=== PATIENT | female | born 1980 | race Caucasian/White ===

== ENCOUNTER 2025-06-24 12:15 | Emergency (ER) | payer MEDICAID, SELFPAY ==
[2025-06-24 12:16] VITALS: BMI 22.7
[2025-06-24 12:33] VITALS: BP 111/62; PULSE 100; RESP 18; TEMP 36.6; O2SAT 97
--- NOTE | 2025-06-24 12:39 | EKG_ITS ---
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
--- NOTE | 2025-06-24 12:39 | XR_ITS ---
Examination: Abdomen AP single view Technique: AP portable supine abdomen, single view Exam date and time: June 24, 2025, 12:55 p.m. INDICATIONS: Dark stools abdominal pain 2 weeks FINDINGS: Moderate stool throughout the colon No obstruction Surgical clips upper right abdomen No free air IMPRESSION: Nonobstructive bowel gas pattern
--- NOTE | 2025-06-24 12:40 | PD.EDRME ---
Rapid Medical Screening Exam E Arrival date/time: 06/24/25 12:15 44-year-old female with no known medical history presents to the emergency room with a chief complaint of feeling like she is going to pass out. Patient states throughout the last 4 days she has had multiple near syncopal episodes. I have greeted and performed a focused initial assessment of this patient. A comprehensive ED assessment and evaluation of the patient, analysis of all test results, and completion of the medical decision making process will be conducted by additional ED providers. Chief Complaint: General Adult/Misc Complain Time Seen by Provider: 06/24/25 12:22 Vital signs: Vital Signs Temperature 97.9 F 06/24/25 12:33 Pulse Rate 100 06/24/25 12:33 Respiratory Rate 18 06/24/25 12:33 Blood Pressure 111/62 06/24/25 12:33 Pulse Oximetry (%) 97 06/24/25 12:33 Oxygen Delivery Method Room Air 06/24/25 12:33 Vital signs reviewed by provider: Yes Exam: Strong and regular rhythm S1 and S2 noted Clear bilateral lung sounds Clinical Impression: Syncope/orthostatic hypotension/anemia
[2025-06-24 12:59] LABS: Basophils # (Auto) 0.1 Thou/mm3 (0.0-0.2); Basophils % (Auto) 1 % (0-2.5); Eosinophils # (Auto) 0.1 Thou/mm3 (0.0-0.5); Eosinophils % (Auto) 2 % (0-10); Hematocrit 42.1 % (36.0-46.0); Hemoglobin 14.0 g/dL (12.0-16.0); Immature Granulocytes Auto 0.01 Thou/mm3 (0.00-0.00); Lymphocytes # (Auto) 3.6 Thou/mm3 (1.0-4.8); Lymphocytes % (Auto) 50 % (10-50); Mean Corpuscular HGB Conc 33.3 g/dl (31.0-37.0); Mean Corpuscular Hemoglobin 30.0 pg (25.0-35.0); Mean Corpuscular Volume 90 fL (80-100); Monocytes # (Auto) 0.7 Thou/mm3 (0.0-0.8); Monocytes % (Auto) 9 % (0-12); Neutrophils # (Auto) 2.8 Thou/mm3 (1.8-7.7); Neutrophils % (Auto) 38 % (37-80); Nucleated Red Blood Cell # 0.00 Thou/mm3 (0.00-0.00); Nucleated Red Blood Cell % 0 /100 WBC (0); Platelet Count 270 Thou/mm3 (140-440); RDW Standard Deviation 46.8 fL (36.4-46.3); Red Blood Count 4.67 Miln/mm3 (4.00-5.20); White Blood Count 7.2 Thou/mm3 (3.6-11.0)
[2025-06-24 13:14] LABS: INR 1.0 (0.9-1.3); Partial Thromboplastin Time 25.9 Seconds (22.0-36.0); Prothrombin Time 10.7 Seconds (9.0-12.2)
[2025-06-24 13:17] LABS: B-Type Natriuretic Peptide < 20 pg/mL (0-100)
[2025-06-24 13:31] LABS: Alanine Aminotransferase 8 U/L (10-49); Albumin, Serum 4.3 gm/dL (3.5-5.0); Albumin/Globulin Ratio 2.0 (1.2-2.2); Alkaline Phosphatase 89 U/L (46-116); Anion Gap 2 (7-16); Aspartate Amino Transferase 15 U/L (0-34); BUN/Creatinine Ratio 9 Ratio (12-20); Bilirubin,Total 0.3 mg/dL (0.3-1.2); Blood Urea Nitrogen 8 mg/dL (9-23); Calcium 9.8 mg/dL (8.3-10.6); Calcium (Corrected) 9.8 mg/dL (8.5-10.1); Carbon Dioxide 26.7 mMol/L (20.0-31.0); Chloride 107 mMol/L (98-107); Creatinine (Component) 0.9 mg/dL (0.6-1.3); Estimated Creatinine Clearance 76.8 mL/min (>60); Free T4 (Free Thyroxine) 1.15 ng/dL (0.89-1.76); Globulin 2.2 gm/dL (2.3-3.5); Glucose 90 mg/dL (74-106); Magnesium 1.8 mg/dL (1.6-2.6); Osmolality,Calculated 270 (275-295); Potassium 4.2 mMol/L (3.4-5.1); Sodium 136 mMol/L (136-145); Thyroid Stimulating Hormone 1.19 uIU/mL (0.55-4.78); Total Protein 6.5 gm/dL (5.7-8.2); Troponin I < 0.002 ng/mL (0.0-0.045); eGFR > 60 See Note
[2025-06-24 15:44] VITALS: BP 110/75; PULSE 100; RESP 18; TEMP 36.7; O2SAT 99
[2025-06-24 15:54] LABS: Collection Type, Urine Clean Catch
[2025-06-24 16:27] LABS: Bilirubin,Urine Negative (Negative); Blood,Urine Negative (Negative); Clarity,Urine Clear (Clear/Hazy); Color,Urine Lt-Yellow (Lt Yel-Yel); Culture Indicated,Urine Not Indicated; Glucose, Urine Negative (Negative); Ketones,Urine Negative (Negative); Leukocyte Esterase,Urine Negative (Negative); Nitrite,Urine Negative (Negative); PH,Urine 6.0 (5.0-7.0); Protein,Urine Negative (Neg - Trace); RBC,Urine 1 /hpf (0-3); Specific Gravity,Urine 1.009 (1.001-1.035); Squamous Epithelial Cell,Urine 2 /hpf (0-5); Urobilinogen,Urine Negative mg/dL (0.0-1.0); WBC,Urine 3 /hpf (0-5)
[2025-06-24 16:35] LABS: Amphetamine/Methamp Scrn,U Negative (Negative); Barbiturate Screen,Urine Negative (Negative); Benzodiazepines Screen,Urine Negative (Negative); Benzoylecgonine Screen, Ur Negative (Negative); Fentanyl Screen,Urine Negative (Negative); Opiate Screen,Urine Negative (Negative); THC Screen,Urine Positive (Negative)
--- NOTE | 2025-06-24 18:13 | PD.EDADULT ---
ED General RME/HPI General Chief complaint: General Adult/Misc Complain Stated complaint: MULTIPLE COMPLAINTS Time Seen by Provider: 06/24/25 12:22 Arrival date/time: 06/24/25 12:15 CC: Syncope HPI patient has had multiple episodes of syncope all in the car 5 episodes this afternoon. But also states for weeks she has been lightheaded dizzy when she sits up or stands up. Went to the patient's medications the patient has multiple psychiatric medications and propranolol for headache which she states she does no longer take. The patient has soft blood pressure but is not tachycardic. Patient denies chest pain shortness of breath difficulty breathing headache nausea vomiting diarrhea. At the time of the exam at 1814, the patient has no symptoms RME / HPI RME / HPI narrative: 06/24/25 12:15 44-year-old female with no known medical history presents to the emergency room with a chief complaint of feeling like she is going to pass out. Patient states throughout the last 4 days she has had multiple near syncopal episodes. I have greeted and performed a focused initial assessment of this patient. A comprehensive ED assessment and evaluation of the patient, analysis of all test results, and completion of the medical decision making process will be conducted by additional ED providers. Exam: Strong and regular rhythm S1 and S2 noted Clear bilateral lung sounds Impression: Syncope/orthostatic hypotension/anemia Related Data Home Medications ?Medication ?Instructions ?Recorded ?Confirmed aripiprazole 10 mg tablet 10 mg PO QDAY 06/24/25 06/24/25 benztropine 1 mg tablet 1 mg PO BID 06/24/25 06/24/25 cholecalciferol (vitamin D3) 1,250 50,000 unit PO QWEEK 06/24/25 06/24/25 mcg (50,000 unit) capsule cyclobenzaprine 10 mg tablet 10 mg PO TID 06/24/25 06/24/25 duloxetine 60 mg capsule,delayed 60 mg PO QDAY 06/24/25 06/24/25 release fluoxetine 20 mg capsule 40 mg PO QDAY 06/24/25 06/24/25 hydroxyzine pamoate 25 mg capsule 50 mg PO Q8H 06/24/25 06/24/25 olanzapine 10 mg disintegrating 10 mg PO QDAY 06/24/25 06/24/25 tablet pregabalin 100 mg capsule 100 mg PO BID 06/24/25 06/24/25 propranolol 20 mg tablet 20 mg PO BID 06/24/25 06/24/25 Previous Rx's ?Medication ?Instructions ?Recorded midodrine 2.5 mg tablet 2.5 mg PO BID #20 tabs 06/24/25 Allergies Allergy/AdvReac Type Severity Reaction Status Date / Time avocado Allergy Severe RASH Verified 06/24/25 12:23 iodine Allergy Severe RASH Verified 06/24/25 12:23 quetiapine (From Seroquel) Allergy Severe Muscle Pain Verified 06/24/25 12:23 olsalazine Allergy Verified 06/24/25 12:23 Review of Systems Review of Systems Narrative Review of Systems: GEN: No fever, no chills, no weight loss EYES: No discharge, no visual changes, no pain HEENT: No ear pain, no congestion, no sore throat PULM: No shortness of breath, no cough, no congestion CV: No chest pain, no dyspnea on exertion, no palpitations GI: No nausea, no vomiting, no diarrhea, no pain, no constipation : No frequency, no urgency, no dysuria MUSC/SKEL: No joint pain, no back pain SKIN: No rash PSYCH: No hallucinations, no depression HEME/LYMPH: No easy bleeding or bruising tendencies NEURO: No weakness, no headache Past Medical History Past Medical History NEUROLOGIC: Positive Neurological Disorders and Seizures ENDOCRINE: Positive Endocrine Disorders and Hypoglycemia PSYCHO/SOCIAL: Positive Bipolar Disorder, Depression and Anxiety Social History SMOKING STATUS: Current every day smoker SUBSTANCE USE: marijuana ED Exam Narrative Physical exam: [General: Not in any acute distress Head normocephalic HEENT: Within acceptable limits Neck is supple nontender Chest equal chest rise nontender to palpation Respiratory: Clear to auscultation no wheezes crackles or rubs CV: Rate rhythm is regular no murmurs rubs or clicks Abdomen is soft nontender no masses positive bowel sounds all 4 quadrants Back: No CVA tenderness no spinous process tenderness from cervical spine thoracic and lumbar spine Skin: Intact no petechiae rash induration ulceration or crepitus Extremities: Moving all extremity against resistance cap refill less than 2 seconds neurosensory intact Neuro: Awake alert oriented x3 Glascow coma 15 no focal deficits] Course Course Course Narrative: The patient most likely has polypharmacy, however I am reluctant to stop any of her medications because a number of these are psychiatric and she will experience withdrawal symptoms. At this time we will add a small amount of midodrine to bump her blood pressure in the meantime she is to return to her primary care provider and see if she can wean off some of these particularly the propranolol. Quality Measures none Orders Category Date Time Status EKG (ED ONLY) *Do not use* NOW Care 06/24/25 12:39 Completed EKG (ED Only) Stat Exams 06/24/25 12:39 Draft XR abdomen 1V Stat Exams 06/24/25 12:39 Completed B-Type Natriuretic Peptide Stat Lab 06/24/25 12:50 Completed CBC Stat Lab 06/24/25 12:50 Completed Comprehensive Metabolic Panel Stat Lab 06/24/25 12:50 Completed Drug Screen,Urine Stat Lab 06/24/25 15:45 Completed Free T4 (Free Thyroxine) Stat Lab 06/24/25 12:50 Completed Magnesium Stat Lab 06/24/25 12:50 Completed Partial Thromboplastin Time Stat Lab 06/24/25 12:50 Completed Prothrombin Time with INR Stat Lab 06/24/25 12:50 Completed TSH [Thyroid Stimulating Hormone] Stat Lab 06/24/25 12:50 Completed Troponin I Stat Lab 06/24/25 12:50 Completed Urinalysis, C/S if Indicated Stat Lab 06/24/25 15:45 Completed Vital Signs Vital signs: Vital Signs Temperature 97.9 F 06/24/25 12:33 Pulse Rate 100 06/24/25 12:33 Respiratory Rate 18 06/24/25 12:33 Blood Pressure 111/62 06/24/25 12:33 Pulse Oximetry (%) 97 06/24/25 12:33 Oxygen Delivery Method Room Air 06/24/25 12:33 Discharge Plan Plan Patient Disposition: HOME (Self Care) Patient condition on transfer: Stable Prescriptions/Referrals Prescriptions/Med Rec: New midodrine 2.5 mg tablet 2.5 mg PO BID Qty: 20 0RF Rx Instructions: do not give last dose of day after 6PM or within 4 hrs of bedtime Referrals: Ancelmo Mandel MD [Physician, Family Practice] - In 1 week No Primary/Family,Physician [Primary Care Provider] - In 1 week Problem List Clinical Impression: Syncope, Hypotension Patient/Caregiver Discharge Instructions Other Activity Instructions:: Giving you medication short-term to see if this improves your blood pressure and thereby improving your lightheaded dizziness and syncopal events. Please contact your primary care doctor and see if there is any other medications a combination of which can cause for the low blood pressure. Education Materials: ED Low Blood Pressure, All Causes, ED Fainting, Uncertain Cause Print Language: Belarusian Stand Alone Forms: Maya Award Info., Work/School Release, Patient Portal Info Letter PA/MICKEY Supervising Physician PA/MICKEY Supervising Physician: Thomas GARCIA Clinical Information Provided by: patient Medical Records reviewed [facility] Meds/Rx considered, not ordered None Labs/Rad/Tests considered, not ordered None Chronic Illness/Social Conditions Explain: Depression EKG Interpretation EKG #1: EKG Interpretation: EKG performed at 1241 shows a ventricular rate of 88. Over 154 QRS of 91 QTc of 405 this normal sinus rhythm Labs Labs: interpreted by ms Lab(s) Interpretation(s): Abdominal x-ray is unremarkable. Imaging Imaging interpretation: interpreted by ms Imaging Interpretation(s): CBC shows no acute leukocytosis anemia thrombocytopenia Coags within acceptable limits CMP shows no significant electrolyte imbalances renal impairment transaminitis or T. bili elevation Troponin and BNP are unremarkable TSH and free T4 are within acceptable limits Urine is negative for any urinary tract infection UDS is positive for marijuana. Diagnosis Differential Diagnosis ED Complaint MDM: Dehydration electrolyte imbalances renal impairment
== END 2025-06-24 18:28 | disposition home or self-care (01) ==
PROVIDERS: Nurse Practitioner Family; Emergency Provider Emergency Medicine
DX: I95.1 Orthostatic hypotension (principal); D64.9 Anemia, unspecified; F32.A Depression, unspecified
CPT/HCPCS: 36415; 74018; 80053; 80307; 81001; 83735; 83880; 84439; 84443; 84484; 85025; 85610; 85730; 93005; 99283